=== PATIENT | male | born 1940 | race Caucasian/White ===

== ENCOUNTER → 2016-10-04 | Day surgery (SDC) | payer OTHER, BC ==
[~2016-10-04] VITALS: Ht 182.9 cm; Wt 112.5 kg
[~2016-10-04] MED LIST: APAP500 PO; ASPIR 8181 MG PO; CENTRUM SILVER1 EAC2 PO; CLONAZEPAM 0.50.5 M1 PO; COZAAR 50 MG TA50 M2 PO; FLEXERIL PO; GARLIC OIL1 EACH PO; GARLIC OIL1000 MG PO; GARLIC100 MG PO; HYDROCODONE-APA1 TA1 PO; LEVOCETIRIZINE D5 MG PO; LIPITOR80 MG PO; METFORMIN HCL500 MG PO; NORVASC5 MG PO; PAROXETINE HCL30 MG PO; PERCOCET PO; PLAVIX 75 MG TA75 M1 PO; TOPROL XL50 MG PO; VYTORIN 10-801 EACH PO; ZANAFLEX4 MG PO
--- NOTE | ~2016-10-04 | EKG ---
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: INES : 1940 Requested By: Darin Prescott Order Number: [id number] MD: Kristofer Wilkinson Measurements Intervals [place] Rate: 52 P: 14 NC: 71 QRS: 71 QRSD: 147 T: 17 QT: 438 QTc: 408 Interpretive Statements Sinus rhythm Short NC interval Right bundle branch block Probable inferior infarct, old Baseline wander in lead(s) V3 No previous ECG available for comparison Electronically Signed On 10-04-2016 15:46:38 STRAW HAT BRIM RAISER OPERATOR by Kristofer Wilkinson [email or web address] <ELECTRONICALLY SIGNED> By: Kristofer Wilkinson MD 10/04/16 1546 D: [id number] Kristofer Wilkinson MD /ANTONETTE
--- NOTE | ~2016-10-04 | O ---
[facility] [place] [address] OPERATIVE REPORT Name: FRANK CALDERON Room #: REG [facility].#: [id number] Admission: 10/04/16 Attend Phys: Darin Prescott MD Discharge: Date of : 40 Report #: [id number] THIS REPORT FOR: //name// CC: Ricco Prescott DATE OF SERVICE: 10/04/2016 CLINICAL EDUCATION ACADEMIC COORDINATOR: None. PREOPERATIVE DIAGNOSIS: Unilateral left lower lid entropion. POSTOPERATIVE DIAGNOSIS: Unilateral left lower lid entropion. OPERATION PERFORMED: Unilateral left lower lid entropion repair. ANESTHESIA: Local with IV sedation. COMPLICATIONS: None. INDICATIONS FOR PROCEDURE: This patient has unilateral lower lid entropion with chronic irritation and discharge. The current procedure is being undertaken in order to improve the patient's level of comfort and visual function. Informed consent was obtained to include but not limited to the loss of vision, bleeding, infection, scarring, failure to improve the problem and need for further surgery. DESCRIPTION OF OPERATION: The patient was taken to the operating room, where 2% Xylocaine with epinephrine mixed with equal parts of 0.75% Marcaine with Wydase was administered transcutaneously and transconjunctivally to the lower lid and lateral canthal area. The patient was then prepped and draped in the usual sterile fashion. A Asia clamp was used to clamp the lateral canthus, following which a sharp canthotomy and cantholysis were performed. Hemostasis was achieved with a monopolar cautery, as it was throughout the case. A tarsal strip was prepared laterally, removing the lash-bearing portion of the redundant lid margin and the redundant tarsal plate. A transconjunctival dissection was then undertaken just inferior to the lower border of the tarsal plate. The lower lid retractors were disinserted from the inferior border of the tarsal plate. The lower lid retractors were then advanced and reattached to the anterior surface of the tarsal plate with mattress 5-0 chromic sutures passed transconjunctivally and secured in the infraciliary margin. The tarsal strip [address] [address] OPERATIVE REPORT Name: FRANK CALDERON Elo Room #: REG [facility].#: [id number] Admission: 10/04/16 Attend Phys: Darin Prescott MD Discharge: Date of : 40 Report #: [id number] was then secured laterally with 2 interrupted 5-0 Prolene sutures. The subcutaneous structures and the skin were then closed with multiple interrupted 6-0 plain gut sutures so the lateral canthal angle was sharply reformed. The wound was then cleaned and dressed with ophthalmic antibiotic ointment. The patient was then transported to the recovery area having tolerated the procedure well with no anesthetic or operative complications being noted. <ELECTRONICALLY SIGNED> By: Darin Prescott MD 10/08/16 0614 1244 1254 Darin Prescott MD /lizbeth
[2016-10-04 13:19] VITALS: BP 135/72
== END | disposition home or self-care (01) ==
LOC: OR 05:24
DX: H02.005 Unspecified entropion of left lower eyelid (principal); F32.9 Major depressive disorder, single episode, unspecified; F41.9 Anxiety disorder, unspecified; G47.33 Obstructive sleep apnea (adult) (pediatric); E78.00 Pure hypercholesterolemia, unspecified; E11.9 Type 2 diabetes mellitus without complications; I10 Essential (primary) hypertension; I25.2 Old myocardial infarction; Z95.5 Presence of coronary angioplasty implant and graft
CPT/HCPCS: 50010; 50101; 50386; 50398; 51636; 56527; 56531; 62110; 62850; 70005

== ENCOUNTER → 2017-07-26 | Outpatient (CLI) | payer OTHER, BC ==
[~2017-07-26] VITALS: Ht 180.3 cm; Wt 121.6 kg
[~2017-07-26] MED LIST changes: +DAPSONE100 MG PO; +TYLENOL EXTRA500 MG PO
--- NOTE | ~2017-07-26 | HPC ---
[facility] [place] [address] PAIN MANAGEMENT CONSULTATION Name: FRANK CALDERON Room #: REG [facility]#: [id number] Admission: 07/26/17 Attend Phys: Yung Moore DO Discharge: Date of : 40 Report #: [id number] THIS REPORT FOR: //name// CC: Parag Moore The patient is a pleasant 76-year-old gentleman seen a little greater than a year ago in March 2016 for lumbar spondylosis and axial back pain. The patient was given bilateral L3-L4 and L4-L5 facet joint injections with dramatic improvement in baseline pain. He returns to pain clinic today noting that he had had some 75% relief for about a year with prior facet joint injections and noted the pain has began to recur in the mid to low back area. No radicular symptoms are noted. The patient has cardiac disease, hence nonsteroidal anti-inflammatory medications are contraindicated. The patient has been off his Plavix for 7 days. PHYSICAL EXAMINATION: Shows a 76-year-old gentleman, BMI is 37.4 kilograms per meter squared. Vital signs stable as noted in the EMR. Rises from chair using armrest. Gait is modestly antalgic. Tender across the L4-L5 mid back area. Pain is exacerbated with side bending and rotation. Lumbar flexion is limited about 80 degrees. Lower extremity strength is symmetric. Straight leg raising negative. ASSESSMENT: Symptomatic lumbosacral spondylosis and axial back pain. PROCEDURE: Bilateral L3-L4 and L4-L5 facet joint injections under fluoroscopy. Fluoroscopy time was under 20 seconds. PROCEDURE: After written informed consent was obtained, the patient was taken to the fluoroscopy suite, placed in prone position. After sterile prep and drape, skin wheal was raised. A 22-gauge stylet needle was placed to contact the inferior aspect of the left L3-L4 and L4-L5 facet joint. Negative aspiration was accomplished. AP and lateral projections showed good needle placement. A 20 mg triamcinolone plus 1 mL of 0.5% preservative-free bupivacaine was injected at each site. Those needles removed. C-arm was turned obliquely to the right and procedure was repeated. After all four needles removed, the patient was allowed to ambulate to recovery room, monitored for an appropriate period of time, discharged in good and stable [address] [address] PAIN MANAGEMENT CONSULTATION Name: FRANK CALDERON Room #: REG [facility] Julien#: [id number] Admission: 07/26/17 Attend Phys: Yung Moore DO Discharge: Date of : 40 Report #: [id number] condition, noting dramatic improvement in baseline pain, in fact noting pain was absent on discharge. <ELECTRONICALLY SIGNED> By: Yung Moore DO 07/29/17 0929 1223 1505 Yung Moore DO /nt
[2017-07-26 10:45] VITALS: BP 124/59
== END | disposition home or self-care (01) ==
LOC: PAIN 08:14
DX: M47.816 Spondylosis without myelopathy or radiculopathy, lumbar region (principal); M47.817 Spondylosis without myelopathy or radiculopathy, lumbosacral region

== ENCOUNTER → 2018-04-11 | Outpatient (CLI) | payer OTHER, BC ==
[~2018-04-11] VITALS: Ht 180.3 cm; Wt 129.1 kg
--- NOTE | ~2018-04-11 | HPC ---
[facility] [place] [address] PAIN MANAGEMENT CONSULTATION Name: FRANK CALDERON Elo Room #: REG [facility] [place].#: [id number] Admission: 04/11/18 Attend Phys: Yung Moore DO Discharge: Date of : 40 Report #: [id number] THIS REPORT FOR: //name// CC: Parag Moore The patient is a pleasant 77-year-old gentleman seen last June for lumbosacral spondylosis without myelopathy and axial back pain. He had excellent relief with bilateral L3-L4 and L4-L5 facet joint injections. The patient notes specifically 80% relief for 6 months. Pain has gradually begun to recur without antecedent trauma and overuse. Pain is in the mid back, right at the top of the iliac crest and somewhat above, compatible with the L3-L4 and L4-L5 facets. Pain is exacerbated with rotation and sidebending. There is no radicular pain component. Lower extremity strength is preserved. Gait is tandem. Straight leg raise is negative. DIAGNOSTIC STUDIES: Include MRI of the lumbar spine from 01/2016 noting facet and ligamentous hypertrophy at L3-L4 and L4-L5. ASSESSMENT: Symptomatic lumbar spondylosis without myelopathy, M47.816. RECOMMENDATION: Repeat bilateral L3-L4 and L4-L5 facet joint injections under fluoroscopy. Follow up simply as needed. Incidentally, the patient has been off Plavix for 5 days. PROCEDURE NOTE: After written and informed consent was obtained, the patient was taken to the fluoroscopy suite, placed in prone position. After sterile prep and drape, skin wheal was raised. A 22-gauge stylet needle was placed to contact the inferior aspect of left L3-L4 and left L4-L5 facet joint. AP and oblique projections showed good needle placement. A 20 mg triamcinolone plus 1 mL of 0.5% preservative-free bupivacaine was injected at each site. C-arm was then turned obliquely and the contralateral side was treated. After all four needles were removed, the area was cleansed, Band-Aids were applied. The patient was allowed to ambulate to recovery, monitored for an appropriate period of time. Please note, the patient noted pain was gone, being a 0/10 on discharge (had rated pain as 6 on a VAS on admission). Fluoroscopy time was 9 seconds. Followup simply as needed. Resume Plavix tonight. <ELECTRONICALLY SIGNED> By: Yung Moore DO 04/13/18 1135 1150 [id number] Yung Moore DO /nt
[2018-04-11 09:41] VITALS: BP 151/71
== END | disposition home or self-care (01) ==
LOC: PAIN 08-09 08:37
DX: M47.816 Spondylosis without myelopathy or radiculopathy, lumbar region (principal)

== ENCOUNTER → 2020-07-04 | Outpatient (CLI) | payer OTHER, BC ==
[~2020-07-04] MED LIST changes: +CALTRATE-600 W1 EACH PO; +LOPRESSOR50 MG PO; +LOSARTAN POTAS100 MG PO; +MUPIROCIN22 GM; +PROTONIX40 M4 PO; +STIOLTO RESPIMAT4 GM INH; +STOOL SOFTENER100 M1 PO; +TYLENOL PM EX-1 EACH PO
== END ==
LOC: LAB 08:34
PROVIDERS: ATTEND Ophthalmology
DX: Z01.812 Encounter for preprocedural laboratory examination (principal); Z20.828 Contact with and (suspected) exposure to other viral communicable diseases

== ENCOUNTER 2020-07-07 07:07 | Day surgery (SDC) | payer OTHER, BC ==
[~2020-07-07] VITALS: Ht 180.3 cm; Wt 116.6 kg
--- NOTE | ~2020-07-07 | O ---
[facility] [place] [address] OPERATIVE REPORT Name: FRANK CALDERON Room #: 150-7 [facility]#: [id number] Admission: 07/07/20 Attend Phys: Darin Prescott MD Discharge: Date of : 40 Report #: [id number] THIS REPORT FOR: cc: Parag Velarde MD, Eric K. MD White,Darin Valenzuela MD ~ CC: Parag Prescott DATE OF SERVICE: 07/07/2020 PREOPERATIVE DIAGNOSIS: Cicatricial right lower lid entropion. POSTOPERATIVE DIAGNOSIS: Cicatricial right lower lid entropion. PROCEDURE: Right lower lid entropion repair. SURGEON: Darin Prescott MD DEMOLITION HAMMER OPERATOR: None. ANESTHESIA: MAC. COMPLICATIONS: None. 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 He presents today for a right lower lid entropion repair as his right lower lid is completely entroped and will not release. Informed consent was obtained to include, but not limited to the potential risk for loss of vision, bleeding, infection, and the fact that this surgery in and of itself will not treat his underlying ocular cicatricial pemphigoid. DESCRIPTION OF PROCEDURE: The patient was taken to the operating room where 2% Xylocaine with epinephrine mixed with equal parts 0.75% Marcaine with Wydase was administered transcutaneously to the right lower lid and cheek. The patient was subsequently prepped and draped in the usual sterile fashion. The right lower lid was then everted and an 11 blade used to separate the anterior and posterior lamella just posterior to the hernandez line across the entire width of the lid. The dissection was carried down through the orbicularis down into the pretarsal space in front of the lower lid retractors. An incision was then made across the entire width of the lid removing all of the lash bearing tissues visible. [address] [address] OPERATIVE REPORT Name: FRANK CALDERON Elo Room #: 150-7 [facility]#: [id number] Admission: 07/07/20 Attend Phys: Darin Prescott MD Discharge: Date of : 40 Report #: [id number] The anterior lamella was then recessed on to the posterior lamella with multiple interrupted 5-0 mattress chromic sutures. The wound was then cleaned and dressed with erythromycin ointment. The patient subsequently transported to the recovery area having tolerated the procedure well with no anesthetic or operative complications being noted. By: [id number] Darin Prescott MD /nt
[2020-07-07 08:22] VITALS: BP 150/70
== END 2020-07-07 10:31 | disposition home or self-care (01) ==
LOC: OR 07:07 → TBA 07:08 → GI 10:04 → OR 10:31
PROVIDERS: ATTEND Ophthalmology
DX: H02.012 Cicatricial entropion of right lower eyelid (principal); I25.10 Atherosclerotic heart disease of native coronary artery without angina pectoris; I10 Essential (primary) hypertension; E78.5 Hyperlipidemia, unspecified; K21.9 Gastro-esophageal reflux disease without esophagitis; G47.30 Sleep apnea, unspecified; E78.00 Pure hypercholesterolemia, unspecified; I25.2 Old myocardial infarction; E11.9 Type 2 diabetes mellitus without complications; F41.9 Anxiety disorder, unspecified; F32.9 Major depressive disorder, single episode, unspecified; Z79.899 Other long term (current) drug therapy; Z98.890 Other specified postprocedural states; Z79.84 Long term (current) use of oral hypoglycemic drugs
CPT/HCPCS: 50010; 50101; 50386; 50398; 51636; 56531; 62110; 62850; 70005

== ENCOUNTER → 2020-09-05 | Outpatient (CLI) | payer OTHER, BC | LOC: LAB 11:50 | PROVIDERS: ATTEND Student in an Organized Health Care Education/Training Program | DX: Z01.812 Encounter for preprocedural laboratory examination (principal); Z20.828 Contact with and (suspected) exposure to other viral communicable diseases ==

== ENCOUNTER 2020-09-08 06:07 | Day surgery (SDC) | payer OTHER, BC ==
[~2020-09-08] VITALS: Ht 182.9 cm; Wt 124.7 kg
[~2020-09-08 06:07] MED LIST changes: +MOXIFLOXACIN3 ML OPHTHALMIC; +MYCOPHENOLATE500 MG PO; +SERTRALINE HCL50 MG PO; +TRIMETHOPRIM /P10 M1 OPHTHALMIC
[2020-09-08 07:27] VITALS: BP 152/96
--- NOTE | 2020-09-12 06:19 | O ---
[facility] [place] [address] OPERATIVE REPORT Name: FRANK CALDERON Room #: DEP [facility]..#: [id number] Admission: 09/08/20 Attend Phys: Darin Prescott MD Discharge: 09/08/20 Date of : 40 Report #: [id number] THIS REPORT FOR: cc: Parag Velarde MD, Eric K. 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 PROCEDURE: Right lower lid entropion repair by myocutaneous advancement flap. SURGEON: Darin Prescott MD LACQUER SIZER: None. ANESTHESIA: MAC. COMPLICATIONS: None. INDICATIONS FOR SURGERY: This pleasant 80-year-old gentleman has relentlessly progressive ocular cicatricial pemphigoid that has advanced despite multiple immunosuppressive regimens. He has previously undergone a right lower lid entropion repair on 06/2020, only to experience recurrent entropion but not lash-globe touch. All of the lashes are gone from his prior procedure, but now he is rolling skin onto his eyeball which requires constant wear of a contact lens, which even in that state is unable to heal his cornea. He presents today for an additional right lower lid and cheek procedure in order to resect the skin off of his anterior lamella that rubs his eyeball. Informed consent was obtained to include but not limited to the potential risk for loss of vision, bleeding, infection, and the potential need for further surgery or treatment. DESCRIPTION OF PROCEDURE: The patient was taken to the operating room where 2% Xylocaine with epinephrine mixed with equal parts 0.75% Marcaine with Wydase was administered primarily transcutaneously with a small aliquot being delivered transconjunctivally to the right lower lid. The patient had a contact lens in place through the entire procedure on both eyes. Care was taken to ensure that it was not unduly manipulated and both started into the case with that contact lens in place. A very judicious use of a Betadine containing prep was then used around both eyes. The patient was subsequently draped in the usual sterile fashion for this procedure. [address] [address] OPERATIVE REPORT Name: FRANK CALDERON Elo Room #: DEP [facility] M.R.#: [id number] Admission: 09/08/20 Attend Phys: Darin Prescott MD Discharge: 09/08/20 Date of : 40 Report #: [id number] A Ev scissor was then used to separate the anterior and posterior lamella such as it were across the entire width of the right lower lid. The dissection was then carried down into the premalar space to ensure that the great majority of the orbicularis muscle in the lower lid was being removed. The skin was excised with the muscle. Hemostasis was then re-achieved with a monopolar cautery. An additional dissection was then carried out inferiorly, and the lower lid and cheek tissues were then advanced (or in this case recess) inferiorly and reattached at a more inferior position on the orbit. This had the effect to drawing the skin and the muscle away from the eyelid margin. A 6-0 plain gut sutures were used for this. At the end of the case, the eyelid margin was tapered to a nice edge and there was no epithelial squamous tissue left from the anterior lamella anywhere close to the eyelid margin. The wound was then cleaned and dressed with bacitracin ophthalmic ointment taking care to not place it on the eyeball itself. The patient was subsequently transported to the recovery area having tolerated the procedure well with no anesthetic or operative complications being noted. <ELECTRONICALLY SIGNED> By: Darin Prescott MD 09/12/20 0619 0830 0849 Darin Prescott MD /nt
== END 2020-09-08 09:08 | disposition home or self-care (01) ==
LOC: TBA 06:07 → OR 06:07
PROVIDERS: ATTEND Ophthalmology
DX: H02.012 Cicatricial entropion of right lower eyelid (principal); H18.49 Other corneal degeneration; I10 Essential (primary) hypertension; E78.00 Pure hypercholesterolemia, unspecified; I25.2 Old myocardial infarction; F32.9 Major depressive disorder, single episode, unspecified; F41.9 Anxiety disorder, unspecified; G47.30 Sleep apnea, unspecified; E78.5 Hyperlipidemia, unspecified; Z98.890 Other specified postprocedural states; Z79.899 Other long term (current) drug therapy; Z98.41 Cataract extraction status, right eye; Z98.42 Cataract extraction status, left eye; Z96.612 Presence of left artificial shoulder joint; Z88.8 Allergy status to other drugs, medicaments and biological substances
CPT/HCPCS: 50010; 50101; 50386; 50398; 56527; 56531; 62110; 62850; 70005

== ENCOUNTER → 2020-11-07 | Outpatient (CLI) | payer OTHER, BC ==
[~2020-11-07] MED LIST changes: +ACYCLOVIR 400400 MG PO; +CLONAZEPAM 1 MG1 M1 PO; +MUPIROCIN1 GM NARES; +NEILMED SINUS R1 KIT NASAL; +PREDNISONE 20 M20 MG PO; +SERTRALINE HCL100 MG PO
== END ==
LOC: LAB 07:42
PROVIDERS: ATTEND Ophthalmology
DX: Z01.812 Encounter for preprocedural laboratory examination (principal); Z20.822 Contact with and (suspected) exposure to COVID-19

== ENCOUNTER 2020-11-10 06:06 | Day surgery (SDC) | payer OTHER, BC ==
[~2020-11-10] VITALS: Ht 182.9 cm; Wt 113.9 kg
[2020-11-10 07:02] VITALS: BP 170/82
[2020-11-10 07:20] LABS: CALCIUM 8.9 mg/dL (8.5-10.1); CREATININE 1.3 mg/dL (0.7-1.3); POTASSIUM 3.7 mmol/L (3.5-5.1)
--- NOTE | 2020-11-14 06:19 | O ---
[facility] [place] [address] OPERATIVE REPORT Name: FRANK CALDERON Room #: DEP [facility].#: [id number] Admission: 11/10/20 Attend Phys: Darin Prescott MD Discharge: 11/10/20 Date of : 40 Report #: [id number] THIS REPORT FOR: cc: Parag Velarde MD, Eric K. 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 PROCEDURE: Left lower lid anterior lamellar resection with advancement flap repair of defect. SURGEON: Dr. Darin Prescott MEDICAL RECORD SPECIALIST: None. ANESTHESIA: MAC. COMPLICATIONS: None. INDICATIONS FOR SURGERY: This pleasant 80-year-old gentleman has aggressive ocular cicatricial pemphigoid that has been only marginally blunted in its progression with systemic immunosuppression. He presents today after having once more fused his left lower lid to his globe. He specifically is inverting the lid margin and skin from his cheek is rubbing his eyeball. He presents today for a left lower lid procedure in order to attempt to improve his ocular surface milieu allowing him to wear a contact lens. Informed consent was obtained to include but not limited to the potential risk for loss of vision, bleeding, infection, failure to improve the problem, and almost certain need for further treatment. DESCRIPTION OF PROCEDURE: The patient was taken to the operating room where 2% Xylocaine with epinephrine mixed with equal parts 0.75% Marcaine with Wydase was administered transcutaneously to the left lower lid. The patient was then prepped and draped in the usual sterile fashion. The contact lens in place, were cleaned and replaced. A 15 blade was then used to make an incision across the hernandez line across the entire width of the lid. An ellipse of skin and muscle was then excised across the entire width of the lid down to the level of the inferior orbital rim. [address] [address] OPERATIVE REPORT Name: FRANK CALDERON Room #: DEP [facility].#: [id number] Admission: 11/10/20 Attend Phys: Darin Prescott MD Discharge: 11/10/20 Date of : 40 Report #: [id number] Hemostasis was then achieved with diligent pinpoint monopolar cautery limiting the cautery towards the eyelid margin. The anterior lamella was then advanced and secured in a recessed position with multiple interrupted mattress 6-0 plain gut sutures. This giulia the skin away from the lid margin somewhere around 8-10 mm. The wound was then cleaned and dressed with erythromycin ointment and the patient subsequently transported to the recovery area having tolerated the procedures well with no anesthetic or operative complications being noted. <ELECTRONICALLY SIGNED> By: Darin Prescott MD 11/14/20 0619 0735 0754 MD gio Oakes
== END 2020-11-10 08:23 | disposition home or self-care (01) ==
LOC: OR 06:06 → TBA 06:06 → OR 08:23
PROVIDERS: ATTEND Ophthalmology
DX: L12.1 Cicatricial pemphigoid (principal); H16.002 Unspecified corneal ulcer, left eye; I10 Essential (primary) hypertension; I25.2 Old myocardial infarction; F32.9 Major depressive disorder, single episode, unspecified; F41.9 Anxiety disorder, unspecified; E78.5 Hyperlipidemia, unspecified; K21.9 Gastro-esophageal reflux disease without esophagitis; G47.30 Sleep apnea, unspecified; Z98.890 Other specified postprocedural states; Z79.899 Other long term (current) drug therapy; Z98.41 Cataract extraction status, right eye; Z98.42 Cataract extraction status, left eye; Z96.612 Presence of left artificial shoulder joint
CPT/HCPCS: 50010; 50101; 50386; 50398; 51636; 56528; 56531; 62110; 62850; 70005

== ENCOUNTER → 2020-12-26 | Outpatient (CLI) | payer OTHER, BC | LOC: RAD 11:54 | PROVIDERS: ATTEND Pediatrics | DX: R06.02 Shortness of breath (principal) ==

== ENCOUNTER → 2021-05-04 | Outpatient (CLI) | payer OTHER, BC ==
[~2021-05-04] VITALS: Ht 180.3 cm; Wt 121.6 kg
[~2021-05-04] MED LIST changes: +HYDROCODON-ACE1 EAC5 PO
[2021-05-04 13:08] VITALS: BP 130/62
--- NOTE | 2021-05-04 13:27 | NUR ---
Pain Clinic Assessment: 1. History of Osteoarthritis: Not Applicable History of Rheumatoid Arthritis: Not Applicable 2. Height: 5 ft. 11 in. 180.3 cm. Weight: 268.0 lb. oz. 121.564 kg. Patient's BMI: 37.4 3. Vital Signs: BP: 130/62 Pulse: 65 Resp: 16 Temp: 02 Sat: 96 ECG Mon: 4. Pain Intensity: 8 5. Fall Risk: Dizziness: N Needs help standing or walking: N Fallen in the last 3 months: N Fall risk comments: 6. Patient on Blood Thinner: None 7. History of Hypertension: Y 8. Opioid Therapy greater than 6 weeks: N Opiate Contract Signed: 9. Risk Assessment Tool Provided: 1 LOW RISK 10. Functional Assessment Tool: 58/70 11. Recreational Drug Use: Never Drug Type: Tobacco Use: Never Smoker Tobacco Type: Amount or Packs/day: How Many Years: Alcohol Use: No Frequency: Quant:
== END | disposition home or self-care (01) ==
LOC: PAIN 07:15
PROVIDERS: ATTEND Anesthesiology Pain Medicine
DX: M51.16 Intervertebral disc disorders with radiculopathy, lumbar region (principal); M47.26 Other spondylosis with radiculopathy, lumbar region; M48.061 Spinal stenosis, lumbar region without neurogenic claudication; G89.29 Other chronic pain; E11.9 Type 2 diabetes mellitus without complications; F32.9 Major depressive disorder, single episode, unspecified; G47.00 Insomnia, unspecified; Z98.890 Other specified postprocedural states; Z79.899 Other long term (current) drug therapy; Z88.8 Allergy status to other drugs, medicaments and biological substances

== ENCOUNTER → 2021-07-24 | Outpatient (CLI) | payer OTHER, BC ==
[~2021-07-24] VITALS: Ht 180.3 cm; Wt 118.0 kg
[2021-07-24 14:12] VITALS: BP 154/71
--- NOTE | 2021-07-24 14:25 | NUR ---
Pain Clinic Assessment: 1. History of Osteoarthritis: Not Applicable History of Rheumatoid Arthritis: Not Applicable 2. Height: 5 ft. 11 in. 180.3 cm. Weight: 260.2 lb. oz. 118.026 kg. Patient's BMI: 36.3 3. Vital Signs: BP: 154/71 Pulse: 61 Resp: 18 Temp: 02 Sat: 97 ECG Mon: 4. Pain Intensity: 8 5. Fall Risk: Dizziness: N Needs help standing or walking: N Fallen in the last 3 months: N Fall risk comments: 6. Patient on Blood Thinner: None 7. History of Hypertension: Y 8. Opioid Therapy greater than 6 weeks: N Opiate Contract Signed: 9. Risk Assessment Tool Provided: 1 LOW RISK 10. Functional Assessment Tool: 58/70 11. Recreational Drug Use: Never Drug Type: Tobacco Use: Never Smoker Tobacco Type: Amount or Packs/day: How Many Years: Alcohol Use: No Frequency: Quant:
== END ==
LOC: PAIN 10:24
PROVIDERS: ATTEND Anesthesiology Pain Medicine
DX: M54.16 Radiculopathy, lumbar region (principal); M19.90 Unspecified osteoarthritis, unspecified site; I10 Essential (primary) hypertension; Z79.899 Other long term (current) drug therapy

== ENCOUNTER 2021-09-20 10:16 | Emergency (ER) | payer OTHER, BC ==
[~2021-09-20] VITALS: Ht 180.3 cm; Wt 117.9 kg
[2021-09-20] MEDS ORDERED: PROTONIX40 M2 PO (10:37)
[2021-09-20] MEDS ORDERED: PROZAC20 MG PO (10:38)
[2021-09-20 12:58] VITALS: BP 178/75
== END 2021-09-20 13:02 | disposition home or self-care (01) ==
LOC: ER 10:16
DX: M51.37 Other intervertebral disc degeneration, lumbosacral region (principal); M54.50 Low back pain, unspecified; G89.29 Other chronic pain; Z88.8 Allergy status to other drugs, medicaments and biological substances; Z79.899 Other long term (current) drug therapy; Z79.82 Long term (current) use of aspirin

== ENCOUNTER → 2021-10-02 | Outpatient (CLI) | payer OTHER, BC ==
[~2021-10-02] VITALS: Ht 180.3 cm; Wt 114.5 kg
[~2021-10-02] MED LIST changes: +ASA81BEC PO; +PROTONIX40 M2 PO; +PROZAC20 MG PO
[2021-10-02 09:45] VITALS: BP 163/84
--- NOTE | 2021-10-02 10:00 | NUR ---
Pain Clinic Assessment: 1. History of Osteoarthritis: Not Applicable History of Rheumatoid Arthritis: Not Applicable 2. Height: 5 ft. 11 in. 180.3 cm. Weight: 252.4 lb. oz. 114.488 kg. Patient's BMI: 35.2 3. Vital Signs: BP: 163/84 Pulse: 73 Resp: 16 Temp: 02 Sat: 97 ECG Mon: 4. Pain Intensity: 9 5. Fall Risk: Dizziness: N Needs help standing or walking: Y Fallen in the last 3 months: Y Fall risk comments: 6. Patient on Blood Thinner: None 7. History of Hypertension: Y 8. Opioid Therapy greater than 6 weeks: N Opiate Contract Signed: 9. Risk Assessment Tool Provided: 1 LOW RISK 10. Functional Assessment Tool: 58/70 11. Recreational Drug Use: Never Drug Type: Tobacco Use: Never Smoker Tobacco Type: Amount or Packs/day: How Many Years: Alcohol Use: No Frequency: Quant:
== END | disposition home or self-care (01) ==
LOC: PAIN 08:36
PROVIDERS: ATTEND Anesthesiology Pain Medicine
DX: M47.22 Other spondylosis with radiculopathy, cervical region (principal); M48.061 Spinal stenosis, lumbar region without neurogenic claudication; M54.59 Other low back pain; G89.29 Other chronic pain; I10 Essential (primary) hypertension; Z98.890 Other specified postprocedural states; Z79.899 Other long term (current) drug therapy; Z88.8 Allergy status to other drugs, medicaments and biological substances